=== PATIENT | female | born 1935 | race Caucasian/White ===

== ENCOUNTER 2016-05-15 17:13 | Inpatient (IN) | payer OTHER ==
[~2016-05-15] VITALS: Ht 157.5 cm; Wt 99.8 kg
[2016-05-15 17:50] LABS: BASOPHILS # (AUTO) 0.2 /CMM (0.0-0.2); BASOPHILS % (AUTO) 2.5 % (0.0-2.0); DIFF TOTAL % 100 %; EOSINOPHILS % (AUTO) 0.7 % (0.0-6.0); HEMATOCRIT 39 % (33-45); HEMOGLOBIN 13.1 g/dL (11.5-14.8); LYMPHOCYTES # (AUTO) 1.5 /CMM (0.8-4.8); LYMPHOCYTES % (AUTO) 24.4 % (20.0-44.0); MEAN CORPUSCULAR HEMOGLOBIN 31 PG (26.0-33.0); MEAN CORPUSCULAR HGB CONC 33 g/dl (31.0-36.0); MEAN CORPUSCULAR VOLUME 94 fL (82-100); MONOCYTES # (AUTO) 0.5 /CMM (0.1-1.30); MONOCYTES % (AUTO) 8.8 % (2.0-12.0); NEUTROPHILS # (AUTO) 3.8 /CMM (1.8-8.9); NEUTROPHILS % (AUTO) 63.6 % (43.0-81.0); PLATELET COUNT (AUTO) 143 /CMM (150-450); RED BLOOD CELL COUNT(AUTO) 4.15 MIL/uL (4.0-5.2)
[2016-05-15 17:59] LABS: ANION GAP 11 (5-14); CALCIUM, SERUM 8.5 mg/dL (8.5-10.1); CARBON DIOXIDE 29 mmol/L (21-32); CHLORIDE 102 mmol/L (98-107); CREATININE 0.9 mg/dL (0.6-1.3); GLUCOSE 116 mg/dL (74-106); SODIUM SERUM 138 mmol/L (136-145); UREA NITROGEN, BLOOD 16 mg/dL (7-18)
[2016-05-15 18:05] LABS: TROPONIN I < 0.017 ng/mL (0.00-0.056)
[2016-05-15 18:19] LABS: KETONES,URINE Negative (NEGATIVE); LEUKOCYTE ESTERASE ,URINE Trace (NEGATIVE)
[2016-05-15 18:20] LABS: ADD UA MICROSCOPIC YES
[2016-05-15 18:23] LABS: ADD URINE CULTURE NO
[2016-05-15 18:27] LABS: CANNABINOID, URINE NEGATIVE (NEGATIVE); PHENCYCLIDINE SCREEN,URINE NEGATIVE (NEGATIVE)
[2016-05-15] MEDS ORDERED: MELA3TAB PO (19:12)
[2016-05-15] MEDS ORDERED: DONE23TA3 PO (19:12)
[2016-05-15] MEDS ORDERED: ONDA-25 PO (19:12)
[2016-05-15] MEDS ORDERED: ASPI81TA2 PO (19:12)
[2016-05-15] MEDS ORDERED: [UNRECOGNIZED DRUG - CODE] PO (19:12)
[2016-05-15] MEDS ORDERED: DOCU-170 PO (19:12)
[2016-05-15] MEDS ORDERED: HALO1TAB5 PO (19:12)
[2016-05-15] MEDS ORDERED: PHEN28OI6 RC (19:12)
[2016-05-15] MEDS ORDERED: LOPE2CAP PO (19:12)
[2016-05-15] MEDS ORDERED: DIVA500T2 PO (19:12)
[2016-05-15] MEDS ORDERED: MELO-270 PO (19:12)
[2016-05-15] MEDS ORDERED: QUET50TA PO (19:12)
[2016-05-15] MEDS ORDERED: BIOT25007 PO (19:12)
[2016-05-15] MEDS ORDERED: DULO30CA2 PO (19:12)
[2016-05-15] MEDS ORDERED: DEXT1CAP3 PO (19:12)
[2016-05-15] MEDS ORDERED: LEVO125T8 PO (19:12)
[2016-05-15] MEDS ORDERED: ZINC30OI4 TP (19:12)
[2016-05-15] MEDS ORDERED: LORA1TAB82 PO (19:12)
[2016-05-15] MEDS ORDERED: ACET325T53 PO (19:12)
[2016-05-15] MEDS ORDERED: OLAN5TAB3 PO (19:14)
[2016-05-15] MEDS ORDERED: MECL-102 PO (19:14)
[2016-05-15] MEDS ORDERED: MAGNESIUM HYDROXIDE 30 ML UDC PO PRN (20:30)
[2016-05-15] MEDS ORDERED: ACETAMINOPHEN 325 MG TABLET PO PRN ×2 (20:30→21:00)
[2016-05-15] MEDS ORDERED: MAG HYDROX/AL HYDROX/SIMETH 30 ML UDC PO PRN (20:30)
[2016-05-15] MEDS ORDERED: DOCUSATE SODIUM 100 MG CAPSULE PO PRN (21:00)
[2016-05-15] MEDS ORDERED: GUAIFENESIN/D-METHORPHAN HB 5 ML UDC PO PRN (21:00)
[2016-05-15] MEDS ORDERED: MECLIZINE HCL 25 MG TABLET PO PRN (21:00)
[2016-05-15] MEDS ORDERED: ONDANSETRON 4 MG TAB.RAPDIS PO PRN (21:00)
[2016-05-15] MEDS ORDERED: LOPERAMIDE HCL (2 MG CAP) 2 MG CAPSULE PO PRN (21:00)
[2016-05-15] MEDS ORDERED: Medication Not On Formulary EA (Melatonin 3 MG) PO SCH (22:00)
[2016-05-15] MEDS ORDERED: Medication Not On Formulary EA (Donepezil HCl 23 MG) PO SCH (22:00)
[2016-05-16] MEDS: ASPIRIN 81 MG TAB.CHEW PO SCH (07:37)
[2016-05-16] MEDS: LORAZEPAM 0.5 MG TABLET PO PRN ×2 (07:37→15:27)
[2016-05-16] MEDS: MELOXICAM 7.5 MG TABLET PO SCH (07:37)
[2016-05-16] MEDS: LEVOTHYROXINE SODIUM 125 MCG TABLET PO SCH (07:37)
[2016-05-16 08:00] VITALS: BP 166/93
[2016-05-16] MEDS ORDERED: Medication Not On Formulary EA (Dextromethorphan Hbr/Quinidine (Nuedexta 20-10 Mg Capsul PO SCH (09:00)
[2016-05-16] MEDS ORDERED: ZINC OXIDE 30 GM TUBE TP PRN (09:30)
[2016-05-16] MEDS ORDERED: PHENYLEPHRINE/SHK LV/MO/PET,WH 30 GM TUBE RC PRN ×2 (10:00)
[2016-05-16 16:00] VITALS: BP 127/65
[2016-05-16 20:00] VITALS: BP 131/76
[2016-05-16] MEDS: DIVALPROEX SODIUM 125 MG CAP.SPRINK PO SCH (22:18)
[2016-05-16] MEDS: OLANZAPINE 5 MG/TAB.RAPDIS PO SCH (22:19)
[2016-05-17 08:00] VITALS: BP 136/65
[2016-05-17] MEDS: MELOXICAM 7.5 MG TABLET PO SCH (08:38)
[2016-05-17] MEDS: ASPIRIN 81 MG TAB.CHEW PO SCH (08:38)
[2016-05-17] MEDS: DULOXETINE HCL 30 MG CAPSULE.DR PO SCH (08:38)
[2016-05-17] MEDS: DIVALPROEX SODIUM 125 MG CAP.SPRINK PO SCH ×2 (08:38→21:04)
[2016-05-17] MEDS: LEVOTHYROXINE SODIUM 125 MCG TABLET PO SCH (08:38)
[2016-05-17 16:00] VITALS: BP 131/92
[2016-05-17 20:00] VITALS: BP 100/61
[2016-05-17] MEDS: OLANZAPINE 5 MG/TAB.RAPDIS PO SCH (21:57)
[2016-05-17] MEDS: TEMAZEPAM 7.5 MG CAPSULE PO PRN (21:57)
[2016-05-18 08:00] VITALS: BP 142/79
[2016-05-18] MEDS: LEVOTHYROXINE SODIUM 125 MCG TABLET PO SCH (09:09)
[2016-05-18] MEDS: DULOXETINE HCL 30 MG CAPSULE.DR PO SCH (09:09)
[2016-05-18] MEDS: DIVALPROEX SODIUM 125 MG CAP.SPRINK PO SCH ×2 (09:09→21:42)
[2016-05-18] MEDS: MELOXICAM 7.5 MG TABLET PO SCH (09:09)
[2016-05-18] MEDS: ASPIRIN 81 MG TAB.CHEW PO SCH (09:09)
[2016-05-18 16:08] VITALS: BP 134/72
[2016-05-18 19:54] VITALS: BP 140/91
[2016-05-18] MEDS: OLANZAPINE 5 MG/TAB.RAPDIS PO SCH (21:42)
[2016-05-19 08:00] VITALS: BP 147/75
[2016-05-19] MEDS: LEVOTHYROXINE SODIUM 125 MCG TABLET PO SCH (08:38)
[2016-05-19] MEDS: MELOXICAM 7.5 MG TABLET PO SCH (09:06)
[2016-05-19] MEDS: ASPIRIN 81 MG TAB.CHEW PO SCH (09:06)
[2016-05-19] MEDS: DIVALPROEX SODIUM 125 MG CAP.SPRINK PO SCH ×2 (09:06→21:53)
[2016-05-19] MEDS: DULOXETINE HCL 30 MG CAPSULE.DR PO SCH (09:06)
[2016-05-19] MEDS: LORAZEPAM 0.5 MG TABLET PO PRN (15:48)
[2016-05-19 16:13] VITALS: BP 134/73
[2016-05-19 19:55] VITALS: BP 137/85
[2016-05-19] MEDS: OLANZAPINE 5 MG/TAB.RAPDIS PO SCH (21:53)
[2016-05-19] MEDS: TEMAZEPAM 7.5 MG CAPSULE PO PRN (21:54)
[2016-05-20] MEDS ORDERED: GUAIFENESIN/D-METHORPHAN HB 5 ML UDC ONE (02:40)
[2016-05-20 08:09] VITALS: BP 135/83
[2016-05-20] MEDS: ASPIRIN 81 MG TAB.CHEW PO SCH (08:36)
[2016-05-20] MEDS: LEVOTHYROXINE SODIUM 125 MCG TABLET PO SCH (08:36)
[2016-05-20] MEDS: MELOXICAM 7.5 MG TABLET PO SCH (08:36)
[2016-05-20] MEDS: DULOXETINE HCL 30 MG CAPSULE.DR PO SCH (08:36)
[2016-05-20] MEDS: DIVALPROEX SODIUM 125 MG CAP.SPRINK PO SCH ×2 (08:36→20:52)
[2016-05-20 16:26] VITALS: BP 135/69
[2016-05-20 20:00] VITALS: BP 129/59
[2016-05-20 20:18] VITALS: BP 129/59
[2016-05-20] MEDS: BOOST PLUS FOOD-CHOCLATE 237 ML BOX PO SCH (20:53)
[2016-05-20] MEDS: OLANZAPINE 5 MG/TAB.RAPDIS PO SCH (21:28)
[2016-05-21] MEDS: TEMAZEPAM 7.5 MG CAPSULE PO PRN (00:09)
[2016-05-21] MEDS: LEVOTHYROXINE SODIUM 125 MCG TABLET PO SCH (06:36)
[2016-05-21 08:00] VITALS: BP 138/75
[2016-05-21] MEDS: BOOST PLUS FOOD-CHOCLATE 237 ML BOX PO SCH ×3 (11:16→17:09)
[2016-05-21] MEDS: DIVALPROEX SODIUM 125 MG CAP.SPRINK PO SCH ×2 (11:18→21:51)
[2016-05-21] MEDS: LORAZEPAM 0.5 MG TABLET PO PRN (11:18)
[2016-05-21] MEDS: MELOXICAM 7.5 MG TABLET PO SCH (11:18)
[2016-05-21] MEDS: ASPIRIN 81 MG TAB.CHEW PO SCH (11:18)
[2016-05-21] MEDS: DULOXETINE HCL 30 MG CAPSULE.DR PO SCH (11:18)
[2016-05-21 16:00] VITALS: BP 149/80
[2016-05-21 19:50] VITALS: BP 136/58
[2016-05-21] MEDS: OLANZAPINE 5 MG/TAB.RAPDIS PO SCH (21:52)
[2016-05-22 08:00] VITALS: BP 122/61
[2016-05-22] MEDS: LEVOTHYROXINE SODIUM 125 MCG TABLET PO SCH (08:46)
[2016-05-22] MEDS: DIVALPROEX SODIUM 125 MG CAP.SPRINK PO SCH ×2 (08:46→21:12)
[2016-05-22] MEDS: MELOXICAM 7.5 MG TABLET PO SCH (08:46)
[2016-05-22] MEDS: ASPIRIN 81 MG TAB.CHEW PO SCH (08:46)
[2016-05-22] MEDS: DULOXETINE HCL 30 MG CAPSULE.DR PO SCH (08:46)
[2016-05-22] MEDS: BOOST PLUS FOOD-CHOCLATE 237 ML BOX PO SCH ×3 (08:47→16:57)
[2016-05-22] MEDS: LORAZEPAM 0.5 MG TABLET PO PRN (09:57)
[2016-05-22 16:00] VITALS: BP 144/78
[2016-05-22 20:04] VITALS: BP 120/60
[2016-05-22] MEDS: OLANZAPINE 5 MG/TAB.RAPDIS PO SCH (21:12)
[2016-05-23 08:06] VITALS: BP 160/61
[2016-05-23] MEDS: DIVALPROEX SODIUM 125 MG CAP.SPRINK PO SCH ×2 (10:06→21:11)
[2016-05-23] MEDS: BOOST PLUS FOOD-CHOCLATE 237 ML BOX PO SCH ×3 (10:06→17:00)
[2016-05-23] MEDS: ASPIRIN 81 MG TAB.CHEW PO SCH (10:07)
[2016-05-23] MEDS: LEVOTHYROXINE SODIUM 125 MCG TABLET PO SCH (10:07)
[2016-05-23] MEDS: DULOXETINE HCL 30 MG CAPSULE.DR PO SCH (10:07)
[2016-05-23] MEDS: MELOXICAM 7.5 MG TABLET PO SCH (10:07)
[2016-05-23 16:29] VITALS: BP 118/58
[2016-05-23 19:53] VITALS: BP 116/65
[2016-05-23] MEDS: OLANZAPINE 5 MG/TAB.RAPDIS PO SCH (21:12)
[2016-05-23] MEDS: TEMAZEPAM 7.5 MG CAPSULE PO PRN (22:43)
[2016-05-23] MEDS: LORAZEPAM 0.5 MG TABLET PO PRN (23:08)
[2016-05-24 08:00] VITALS: BP 154/90
[2016-05-24] MEDS: BOOST PLUS FOOD-CHOCLATE 237 ML BOX PO SCH ×3 (08:00→17:34)
[2016-05-24] MEDS: MELOXICAM 7.5 MG TABLET PO SCH (09:45)
[2016-05-24] MEDS: DIVALPROEX SODIUM 125 MG CAP.SPRINK PO SCH ×2 (09:45→21:52)
[2016-05-24] MEDS: DULOXETINE HCL 30 MG CAPSULE.DR PO SCH (09:45)
[2016-05-24] MEDS: ASPIRIN 81 MG TAB.CHEW PO SCH (09:45)
[2016-05-24] MEDS: LEVOTHYROXINE SODIUM 125 MCG TABLET PO SCH (10:28)
[2016-05-24 16:00] VITALS: BP 131/74
[2016-05-24] MEDS: LORAZEPAM 0.5 MG TABLET PO PRN (17:32)
[2016-05-24 20:00] VITALS: BP 133/114
[2016-05-24] MEDS: TEMAZEPAM 7.5 MG CAPSULE PO PRN (21:54)
[2016-05-24] MEDS: OLANZAPINE 5 MG/TAB.RAPDIS PO SCH (21:54)
[2016-05-25 08:10] VITALS: BP 120/59
[2016-05-25] MEDS ORDERED: OLANZAPINE 2.5 MG TABLET PO SCH (09:00)
[2016-05-25] MEDS: DULOXETINE HCL 30 MG CAPSULE.DR PO SCH (09:56)
[2016-05-25] MEDS: MELOXICAM 7.5 MG TABLET PO SCH (09:56)
[2016-05-25] MEDS: ASPIRIN 81 MG TAB.CHEW PO SCH (09:56)
[2016-05-25] MEDS: LEVOTHYROXINE SODIUM 125 MCG TABLET PO SCH (09:56)
[2016-05-25] MEDS: DIVALPROEX SODIUM 125 MG CAP.SPRINK PO SCH ×2 (09:56→20:31)
[2016-05-25] MEDS: BOOST PLUS FOOD-CHOCLATE 237 ML BOX PO SCH ×3 (09:57→16:52)
[2016-05-25] MEDS: LORAZEPAM 0.5 MG TABLET PO PRN (12:18)
[2016-05-25] MEDS ORDERED: OLANZAPINE 2.5 MG TABLET PO ONE (13:00)
[2016-05-25 16:00] VITALS: BP 100/52
[2016-05-25] MEDS: OLANZAPINE 5 MG/TAB.RAPDIS PO SCH (16:51)
[2016-05-25 20:00] VITALS: BP 111/70
[2016-05-25] MEDS: TEMAZEPAM 7.5 MG CAPSULE PO PRN (21:32)
[2016-05-26 08:05] VITALS: BP 113/64
[2016-05-26] MEDS: BOOST PLUS FOOD-CHOCLATE 237 ML BOX PO SCH ×3 (08:10→16:47)
[2016-05-26] MEDS: MELOXICAM 7.5 MG TABLET PO SCH (08:11)
[2016-05-26] MEDS: DIVALPROEX SODIUM 125 MG CAP.SPRINK PO SCH ×2 (08:11→20:12)
[2016-05-26] MEDS: OLANZAPINE 5 MG/TAB.RAPDIS PO SCH ×2 (08:11→16:21)
[2016-05-26] MEDS: DULOXETINE HCL 30 MG CAPSULE.DR PO SCH (08:11)
[2016-05-26] MEDS: LEVOTHYROXINE SODIUM 125 MCG TABLET PO SCH (08:11)
[2016-05-26] MEDS: ASPIRIN 81 MG TAB.CHEW PO SCH (08:11)
[2016-05-26 16:15] VITALS: BP 112/75
[2016-05-26 19:52] VITALS: BP 144/54
[2016-05-26] MEDS: TEMAZEPAM 7.5 MG CAPSULE PO PRN (23:50)
[2016-05-27 08:00] VITALS: BP 100/56
[2016-05-27] MEDS: BOOST PLUS FOOD-CHOCLATE 237 ML BOX PO SCH ×3 (08:00→17:44)
[2016-05-27] MEDS: ASPIRIN 81 MG TAB.CHEW PO SCH (09:28)
[2016-05-27] MEDS: MELOXICAM 7.5 MG TABLET PO SCH (09:28)
[2016-05-27] MEDS: DIVALPROEX SODIUM 125 MG CAP.SPRINK PO SCH ×2 (09:28→20:39)
[2016-05-27] MEDS: LEVOTHYROXINE SODIUM 125 MCG TABLET PO SCH (09:29)
[2016-05-27] MEDS: DULOXETINE HCL 30 MG CAPSULE.DR PO SCH (09:29)
[2016-05-27] MEDS: OLANZAPINE 5 MG/TAB.RAPDIS PO SCH ×2 (09:29→17:44)
[2016-05-27] MEDS: LORAZEPAM 0.5 MG TABLET PO PRN (09:30)
[2016-05-27 16:13] VITALS: BP 127/80
[2016-05-27 20:02] VITALS: BP 133/60
[2016-05-27] MEDS: TEMAZEPAM 7.5 MG CAPSULE PO PRN (22:15)
[2016-05-28 08:00] VITALS: BP 136/92
[2016-05-28] MEDS: DULOXETINE HCL 30 MG CAPSULE.DR PO SCH (08:30)
[2016-05-28] MEDS: ASPIRIN 81 MG TAB.CHEW PO SCH (08:30)
[2016-05-28] MEDS: LEVOTHYROXINE SODIUM 125 MCG TABLET PO SCH (08:30)
[2016-05-28] MEDS: MELOXICAM 7.5 MG TABLET PO SCH (08:31)
[2016-05-28] MEDS: DIVALPROEX SODIUM 125 MG CAP.SPRINK PO SCH ×2 (08:31→21:42)
[2016-05-28] MEDS: OLANZAPINE 5 MG/TAB.RAPDIS PO SCH ×2 (08:31→16:14)
[2016-05-28] MEDS: BOOST PLUS FOOD-CHOCLATE 237 ML BOX PO SCH ×3 (08:41→16:15)
[2016-05-28 16:00] VITALS: BP 108/54
[2016-05-28 20:12] VITALS: BP 118/69
[2016-05-29] MEDS: LEVOTHYROXINE SODIUM 125 MCG TABLET PO SCH (07:30)
[2016-05-29] MEDS: BOOST PLUS FOOD-CHOCLATE 237 ML BOX PO SCH ×3 (08:00→17:00)
[2016-05-29 08:27] VITALS: BP 123/71
[2016-05-29] MEDS: DIVALPROEX SODIUM 125 MG CAP.SPRINK PO SCH ×2 (09:41→20:11)
[2016-05-29] MEDS: ASPIRIN 81 MG TAB.CHEW PO SCH (09:41)
[2016-05-29] MEDS: MELOXICAM 7.5 MG TABLET PO SCH (09:41)
[2016-05-29] MEDS: DULOXETINE HCL 30 MG CAPSULE.DR PO SCH (09:41)
[2016-05-29] MEDS: OLANZAPINE 5 MG/TAB.RAPDIS PO SCH ×3 (09:43→17:00)
[2016-05-29 10:56] LABS: CHOLESTEROL 164 mg/dL (<200); HDL CHOLESTEROL 47 mg/dL (40-60); LDL 109 mg/dL (0-99); TRIGLYCERIDES 72 mg/dL (30-150)
[2016-05-29] MEDS: LORAZEPAM 0.5 MG TABLET PO PRN (11:32)
[2016-05-29 16:00] VITALS: BP 132/68
[2016-05-29 20:10] VITALS: BP 126/74
[2016-05-29] MEDS: TEMAZEPAM 7.5 MG CAPSULE PO PRN (21:21)
[2016-05-30 08:00] VITALS: BP 126/57
[2016-05-30] MEDS: OLANZAPINE 5 MG/TAB.RAPDIS PO SCH ×3 (08:12→16:29)
[2016-05-30] MEDS: MELOXICAM 7.5 MG TABLET PO SCH (08:15)
[2016-05-30] MEDS: DULOXETINE HCL 30 MG CAPSULE.DR PO SCH (08:15)
[2016-05-30] MEDS: DIVALPROEX SODIUM 125 MG CAP.SPRINK PO SCH ×2 (08:15→21:25)
[2016-05-30] MEDS: ASPIRIN 81 MG TAB.CHEW PO SCH (08:15)
[2016-05-30] MEDS: BOOST PLUS FOOD-CHOCLATE 237 ML BOX PO SCH ×3 (08:16→16:29)
[2016-05-30] MEDS: LEVOTHYROXINE SODIUM 125 MCG TABLET PO SCH (08:16)
[2016-05-30 16:00] VITALS: BP 107/59
[2016-05-30 20:00] VITALS: BP 122/83
[2016-05-30] MEDS: LORAZEPAM 0.5 MG TABLET PO PRN (21:55)
[2016-05-31] MEDS: TEMAZEPAM 7.5 MG CAPSULE PO PRN (00:37)
[2016-05-31] MEDS: LEVOTHYROXINE SODIUM 125 MCG TABLET PO SCH ×2 (07:30→09:54)
[2016-05-31 08:00] VITALS: BP 134/61
[2016-05-31] MEDS: DULOXETINE HCL 30 MG CAPSULE.DR PO SCH ×2 (09:00→09:54)
[2016-05-31] MEDS: ASPIRIN 81 MG TAB.CHEW PO SCH ×2 (09:00→09:54)
[2016-05-31] MEDS: OLANZAPINE 5 MG/TAB.RAPDIS PO SCH ×3 (09:00→12:14)
[2016-05-31] MEDS: DIVALPROEX SODIUM 125 MG CAP.SPRINK PO SCH ×2 (09:00→09:54)
[2016-05-31] MEDS: MELOXICAM 7.5 MG TABLET PO SCH ×2 (09:00→09:54)
[2016-05-31] MEDS: BOOST PLUS FOOD-CHOCLATE 237 ML BOX PO SCH ×2 (09:54→12:14)
== END 2016-05-31 15:19 | DRG 885 ==
LOC: ER 17:15 → GPS 19:41
PROVIDERS: ADMIT Psychiatry & Neurology Psychiatry; ATTEND Family Medicine
DX: F29 Unspecified psychosis not due to a substance or known physiological condition (principal); F03.91 Unspecified dementia, unspecified severity, with behavioral disturbance; E03.9 Hypothyroidism, unspecified; Z87.440 Personal history of urinary (tract) infections; Z91.19 Patient's noncompliance with other medical treatment and regimen
CPT/HCPCS: 36415; 80048-TC; 80061-TC; 80164-TC; 80305; 81000-TC; 84484-TC; 85025-TC; 87081-TC; 97001-TC; 97116-TC; 97530-TC; A4606; G0480; Z7610